=== PATIENT | female | born 1955 | race Caucasian/White ===

== ENCOUNTER 2018-12-19 07:00 | Inpatient (IN) | payer BC ==
[2018-12-13 13:34] VITALS: Ht 170.2 cm; Wt 73.5 kg
--- NOTE | 2018-12-14 07:01 | PREOPHP ---
DATE OF ADMISSION: 12/19/2018 DATE OF SURGERY: With Dr. Mal Cliffodr at [facility] on 12/19/2018. REASON FOR CONSULTATION: Consultation requested by Dr. Mal Clifford for medical evaluation and clearance of a 63-year-old woman about to undergo surgery. Thank you, Dr. Clifford, for allowing us to participate in care of this patient. HISTORY OF PRESENT ILLNESS: Willow Meneses a 63-year-old woman, issues with her back, is currently being admitted for correction of the above problem. In terms of her past medical and surgical history, she has had no medical hospitalizations. Her deliveries were vaginal. She has had the following surgical procedure: left oophorectomy, appendectomy, varicose vein stripping in her lower extremities and eyelid surgery, right and left eyelid for ptosis of eyelids. She has not broken any big bones. MEDICATIONS: She is currently taking the following medications: Levothyroxine 100 mcg a day, Amitriptyline 10 mg at bedtime and vitamins and minerals. ALLERGIES: SHE IS NOT ALLERGIC TO ANY MEDICATIONS. SOCIAL HISTORY: The patient is a , has 2 children and 5 grandchildren. She does not smoke. Alcohol socially. Does drink coffee. Has no difficulty sleeping at night and is retired. FAMILY HISTORY: Both parents are . Father in 70s of brain cancer. Mother in her 50s of breast cancer. Three brothers in good health other than cancer and some hypertension. She knows of no diabetes, heart or stroke in the family. REVIEW OF SYSTEMS: HEENT: Unremarkable. CARDIORESPIRATORY: Denies any chest pain or shortness of breath. GASTROINTESTINAL: No melena or hematemesis. Has history of diverticular disease. GENITOURINARY: No urgency, frequency. GYNECOLOGIC: Postmenopause, up to date with her head of loss prevention. MUSCULOSKELETAL: Positive for back pain. NEUROPSYCHIATRIC: Unremarkable. GENERAL HEALTH: As above. PHYSICAL EXAMINATION: VITAL SIGNS: The patient's blood pressure was 122/62, pulse was 76 and regular, respirations were 18, temperature 97.9, height 5 feet 7 inches, weight 160 pounds. GENERAL: The patient was noted to be a well-developed, well-nourished female, alert and cooperative, in no apparent acute distress, oriented to time, place, and person. HEAD, EARS, EYES, NOSE AND THROAT: Head was atraumatic. Eyes: Pupils were equal, reacted to light and accommodation. Fundi were benign. Tympanic membranes were unremarkable. Nose was negative. Mouth was unremarkable. Fair oral hygiene was present. NECK: Supple without any rigidity. Trachea was midline. Thyroid was within normal limits. Neck veins were flat. Carotid pulses were equal. No bruits were heard. BACK: Unremarkable. CHEST: Symmetrical. BREASTS AND AXILLARY: Did not reveal any obvious masses. LUNGS: Clear to percussion and auscultation. HEART: PMI was 5th intercostal space at the midclavicular line. A regular sinus rhythm was noted. No significant murmurs, rubs, or gallops being elicited. ABDOMEN: Soft, good bowel sounds were noted. No significant organomegaly, masses, or tenderness. Scar from prior surgery was noted. GENITALIA AND PELVIRECTAL: Up to date per head of loss prevention. EXTREMITIES: Did not reveal any clubbing, edema or cyanosis. Peripheral pulses were physiologic. SKIN: Moist and warm with eruptions. No gross lymphadenopathy was noted. NEUROLOGIC: Grossly intact. IMPRESSION 1. Lumbar disk disease and stenosis L4-L5. 2. Hypothyroidism. 3. Post-menopausal syndrome. 4. Stable health. LABORATORY DATA: Review of laboratory and other data revealed the following: The patient's chemistry panel including electrolytes, glucose, BUN, creatinine, calcium and uric acid, protein is magnesium and iron were normal. CBC, UA, PT and PTT were normal as well. The patient's EKG revealed a left bundle branch block which has been there before on prior EKGs. Regular sinus rhythm, no other abnormalities being noted and chest x-ray did not reveal any acute infiltrates, nor with creatinine and acute cardiopulmonary changes noted. DISCUSSION: Dr. Clifford, I see no contraindication to this patient undergoing current proposed surgery under desired form of anesthesia and feel she is a suitable candidate at this particular point in time and we will be more than happy to follow her along with you during her stay at [facility]. Thank you again, Dr. Clifford, for allowing us to participate in care of this patient. Dictated By: YANNI MCKEE/ROSINA Conf#: [id number] DID#: [id number] CLIFF
[~2018-12-19] VITALS: Ht 170.2 cm; Wt 73.5 kg
[~2018-12-19 07:00] MED LIST: AMIT10TA6 PO; CEFAZOLIN 2 GM/50 ML (PMX) 50 ML IVPB SCH; LACTATED RINGER'S 1,000 ML IV SCH; LEVO100T8 PO; METO10TA3 PO
[2018-12-31] VITALS (23 sets, daily range): BP systolic 96–125; BP diastolic 49–71; PULSE 64–82; RESP 12–28
[2018-12-31] MEDS: LACTATED RINGER'S 1,000 ML IV SCH (06:14)
[2018-12-31] MEDS ORDERED: CEFAZOLIN 2 GM/50 ML (PMX) 50 ML IVPB ONE (06:30)
--- NOTE | 2018-12-31 06:44 | PREAC ---
Date/Time of Note Date/Time of Note DATE: 12/31/18 TIME: 06:44 Anesthesia Eval and Record Evaluation Time Pre-Procedure Interview DATE: 12/31/18 TIME: 06:44 Age 63 Sex female NPO: 8 hrs Preoperative diagnosis Lumbar ddd Planned procedure L4-5 laminectomy Past Medical History Past Medical History: Includes Cardio: Arrythmia (LBBB) Endo: Hypothyroid Surgery & Anesthesia Issues No known issue Meds Anticoagulation: No Beta Greg within 24 hr: No Reason Beta Greg not given: Pt. not on B-Greg Reported Medications Levothyroxine Sodium* (Levothyroxine Sodium*) 100 Mcg Tablet, 100 MCG PO BEFORE BREAKFAST, #30 TAB 12/13/18 Amitriptyline Hcl* (Amitriptyline Hcl*) 10 Mg Tablet, 15 MG PO QHS, #30 TAB 12/13/18 Current Medications Cefazolin Sodium/ Dextrose 50 ml @ 100 mls/hr PRE-OP ONCE IVPB ; Start 12/31/18 at 06:30; Stop 12/31/18 at 06:59 Lactated Ringer's 1,000 ml @ 20 mls/hr Q24H IV Last administered on 12/31/18at 06:14; Admin Dose 20 MLS/HR; Start 12/31/18 at 06:30 Meds reviewed: Yes Allergies Coded Allergies: No Known Allergy (Unverified , 12/31/18) Allergies Reviewed: Yes Labs/Studies Labs Reviewed: Reviewed by anesthesiologist Result Diagram: 12/27/18 1435 12/27/18 1435 Blood Bank Test 12/31/18 05:55 Blood Product Summary Counts test: Negative Studies: ECG Pre-procedure Exam Last vitals Vital Signs Date Temp Pulse Resp B/P (MAP) Pulse Ox O2 O2 Flow FiO2 Time Delivery Rate 12/31/18 97.8 64 18 122/71 96 Room Air 06:32 (88) Airway: Adequate mouth opening, Adequate thyromental dist Mallampati: Mallampati II Teeth: Normal Lung: Normal Heart: Normal ASA Physical Status ASA physical status: 2 Emergency: None Planned Anesthetic General/MAC: ETT Pre-operative Attestations Prior to commencing anesthesia and surgery, the patient was re-evaluated, there was verification of: *The patient's identity *The results of appropriate recent lab work and preoperative vital signs *The above evaluation not changing prior to induction *Anesthetic plan, risk benefits, alternative and complications discussed with patient/family; questions answered; patient/family understands, accepts and wishes to proceed. SERA LOGAN Dec 31, 2018 06:44
--- NOTE | 2018-12-31 06:53 | HPN ---
Date/Time of Note Date/Time of Note DATE: 12/31/18 TIME: 06:53 Interval H&P Admission Note Pt. seen H&P reviewed: No system changes ALIYA BEACH MD Dec 31, 2018 06:53
[2018-12-31] MEDS ORDERED: BUPIVACAINE 0.25% (MPF) 30 ML INJ ONE (07:00)
[2018-12-31] MEDS ORDERED: POLYMYXIN/BACITRACIN 1L IRRIG ONE (07:00)
[2018-12-31] MEDS ORDERED: GELATIN SIZE 100 SPONGE ONE (07:00)
[2018-12-31] MEDS ORDERED: THROMBIN 5000 UNIT (RECOTHROM) VIAL ONE (07:00)
[2018-12-31] MEDS ORDERED: SUCCINYLCHOLINE CHLORIDE 100 MG/5 ML SYG IV ONE (07:01)
[2018-12-31] MEDS ORDERED: PROPOFOL 20 ML ONE (07:01)
[2018-12-31] MEDS ORDERED: LIDOCAINE 100 MG SYRINGE ONE (07:01)
[2018-12-31] MEDS ORDERED: EPHEDrine 25 MG/5 ML SYG ONE (07:01)
[2018-12-31] MEDS ORDERED: FENTAnyl 50 MCG/ML VIAL ONE (07:01)
[2018-12-31] MEDS ORDERED: ROCURONIUM 50 MG INJ ONE (07:01)
[2018-12-31] MEDS ORDERED: SUGAMMADEX SODIUM 200 MG/2 ML VIAL IV ONE (09:08)
--- NOTE | 2018-12-31 09:49 | SIPON ---
Date/Time of Note Date/Time of Note DATE: 12/31/18 TIME: 09:48 Operative Report Preoperative Diagnosis Lumbar spinal stenosis at L4 and L5 Postoperative Diagnosis Same Operation/Procedure Performed Central decompressive laminectomy at L4 Central decompressive laminectomy at L5 Medial facetectomy and foraminotomy L4-5 and L5-S1 bilaterally Cosmetic wound closure (6 cm) Lateral localizing lumbar radiographs (2) Intraoperative nerve monitoring (3 hours) Surgeon see signature line entry level administrative assistant GENIE WeaverA Anesthesia: general Estimated blood loss: 10 - 50 ml's Transfusion Required none Specimen Spinous process of L4 and L5 Grafts/Implants none Complications none ALIYA BEACH MD Dec 31, 2018 09:49
[2018-12-31] MEDS: ONDANSETRON 4 MG INJ IV PRN ×2 (09:56→10:54)
[2018-12-31] MEDS ORDERED: NACL 0.9% 3 ML SYG IV SCH (10:00)
[2018-12-31] MEDS ORDERED: KETOROLAC 30 MG INJ IV PRN (10:00)
[2018-12-31] MEDS ORDERED: TRIMETHOBENZAMIDE 100 MG/ML VIAL IM PRN (10:00)
[2018-12-31] MEDS ORDERED: ONDANSETRON 4 MG INJ IV PRN (10:00)
[2018-12-31] MEDS ORDERED: HYDROmorphONE 0.2 MG/ML PCA IV SCH (10:00)
[2018-12-31] MEDS ORDERED: MEPERIDINE 25 MG INJ IV PRN (10:00)
[2018-12-31] MEDS ORDERED: FENTAnyl 50 MCG/ML VIAL IV PRN ×3 (10:00)
[2018-12-31] MEDS ORDERED: PROCHLORPERAZINE 10 MG TAB PO PRN (10:00)
[2018-12-31] MEDS ORDERED: BETHANECHOL 25 MG TAB PO PRN (10:00)
[2018-12-31] MEDS ORDERED: AL HYDROX/MG HYDROX/SIMETH 30 ML CUP PO PRN (10:00)
[2018-12-31] MEDS ORDERED: HYDROmorphONE 1 MG/5 ML IV SYRINGE IV PRN ×3 (10:00)
[2018-12-31] MEDS ORDERED: HYDROCODONE/APAP (5/325) TAB PO PRN (10:00)
[2018-12-31] MEDS ORDERED: NALOXONE (0.4 MG/ML) INJ IV PRN (10:00)
[2018-12-31] MEDS ORDERED: CEPASTAT LOZENGE MT PRN (10:00)
[2018-12-31] MEDS ORDERED: DIAZEPAM 5 MG/ML SYG IM PRN (10:00)
[2018-12-31] MEDS ORDERED: DIPHENHYDRAMINE 50 MG CAP PO PRN (10:00)
[2018-12-31] MEDS ORDERED: ACETAMINOPHEN 325 MG TAB PO PRN (10:00)
[2018-12-31] MEDS ORDERED: OXYCODONE/ACETAMINOPHEN (5/325) TAB PO PRN ×2 (10:00)
[2018-12-31] MEDS ORDERED: ZOLPIDEM 5 MG TAB PO PRN (10:00)
--- NOTE | 2018-12-31 10:18 | OPR ---
DATE OF OPERATION: 12/31/2018 PREOPERATIVE #[id number]: Lumbar spinal stenosis at L4 and L5. POSTOPERATIVE DIAGNOSIS: Lumbar spinal stenosis at L4 and L5. OPERATIONS PERFORMED: 1. Central decompressive laminectomy at L4. 2. Central decompressive laminectomy at L5. 3. Medial facetectomy and foraminotomy, L4-L5 and L5-S1 bilaterally. 4. Cosmetic wound closure (6 cm). 5. Lateral localized lumbar radiographs (2). 6. Intraoperative nerve monitoring (3 hours). SURGEON: Mal Clifford MD OPERATION SUPERVISOR: SILVIO Weaver ANESTHESIA: Endotracheal. ANESTHESIOLOGIST: Jovani Selby MD ESTIMATED BLOOD LOSS: 50 mL, none replaced. DRAINS: Two medium Hemovac drains employed. COMPLICATIONS: None. PERTINENT HISTORY AND PHYSICAL: This is a 63-year-old female with persistent severe back and bilater al leg pain, left greater than right, which has been unrelieved by conservative management. She has undergone a number of diagnostic studies including an MRI of the lumbar spine which demonstrated lumb ar spinal stenosis at L4 (severe) and L5 (lateral recess). Treatment options discussed with the william ent, and she elected to proceed with surgery. OPERATIVE FINDINGS AT SURGERY: Severe stenosis at L4-L5 centrally and lateral recess stenosis at L5- S1 was confirmed. The baseline intraoperative nerve monitoring revealed a decrease in the left L4 po tential of 40%, the right L4 potential of 20%, the left L5 potential of 40%. These all returned to n ormal at the completion of surgery. OPERATIVE PROCEDURE: With the patient in supine position after satisfactory induction of general end otracheal anesthesia by Dr. Selby, the patient was turned to the prone kneeling position over the [place] frame. All pressure points carefully padded. Back was prepped and draped in usual sterile fashion. Athrombic pumps were applied to the legs below the knees to prevent venostasis during and after procedure. An indwelling Macdonald catheter was also placed preoperative to facilitate bladder artur inage during and after procedure. Two spinal needles placed next to what was felt to be the L4 and L 5 spinous processes, lateral angiogram was taken to confirm anatomic localization. A 6 cm incision t hen carried midline over the spinous process of L4 and L5 through skin and subcutaneous tissue to suzie p fascia after skin was infiltrated with 0.25% Marcaine without epinephrine for postoperative analges ia. Superficial retractors were placed and hemostasis secured with electrocautery. Throughout the p rocedure, copious amounts of antibacterial irrigating solution used to periodically irrigate the woun d. The fascia was incised in midline with a hot knife and a bilateral subperiosteal dissection leon ed out at L4 and L5. Deep retractors were placed and deep hemostasis secured with electrocautery. A central decompressive laminectomy at L4 and L5 was then carried out using a Dimas right-angle bone rongeur, Leksell rongeur, Kerrison punches and curettes. Ligamentum flavum was excised with sharp d issection at both levels. The operating microscope then moved into place. A medial facetectomy and foraminotomy was accomplished at L4-L5 and L5-S1 bilaterally using small hand osteotome, mallet, Baires larissa punches and curettes. The epidural hemostasis was secured with bipolar electrocautery on a low setting. Anesthesiologist then asked to perform a Valsalva maneuver at 40 mmHg and no spinal fluid l eak was noted. The wound was then closed in layers over 2 medium Hemovac drains using #1 Stratafix s utures in deep paralumbar musculature and deep fascia of back, 2-0 Stratafix sutures in subcu tissue, and a 4-0 Vicryl subcuticular cosmetic closing suture on the skin. Dermabond and sterile compressiv e dressings were applied. The patient having tolerated procedure well and was then turned to the sup ine position onto her bed and extubated by Dr. Selby. She was transported to the recovery room i n satisfactory condition. At the conclusion of procedure, sponge, instrument, and needle counts were all correct. NEED FOR FIELD DIRECTOR: During this spinal surgical procedure, my legal document assistant was used to retract and protect the spinal nerves and dural sac. My legal document assistant also employed the suction catheters to maurice jessica blood from the surgical field to improve visualization of the neural structures. The legal document assistant was medically necessary to facilitate the completion of the surgery in a safe and expeditious manner. State of [place] regulations, as well as hospital bylaws, preclude the use of non-licensed health care personnel such as operating room technicians, to perform these functions. Throughout the procedure, neural monitoring was carried out by Drive YOYO including EMG, SSEP a nd MEP monitoring of the L3, L4, L5 and S1 nerve roots bilaterally. These are interpreted in real ti me by Dr. Maxi Pinedo. Dictated By: MAL CLIFFORD MD TM/NTS Conf#: [id number] DID#: [id number] CC: SHELL CATES MD;*EndCC*
[2018-12-31] MEDS ORDERED: CEFAZOLIN 1 GM/50 ML (PMX) 50 ML IVPB SCH (12:00)
[2018-12-31] MEDS: DEXTROSE 5%-0.45% NACL 1,000 ML IV SCH ×2 (12:20→19:36)
--- NOTE | 2018-12-31 13:57 | CONS ---
Assessment/Plan Assessment/Plan Problems: (1) Nausea with vomiting Status: Acute Comment: Likely a response to narcotics. Will add metoclopramide as primary option for nausea instead of ondansetron. Monitor to see if symptoms improve. (2) Hypothyroidism Status: Chronic Comment: Cont. LT4 100 mcg/d (3) Insomnia Status: Chronic Comment: Cont. amitriptyline 15 mg qhs (4) Lumbar spinal stenosis Status: Resolved Comment: Per primary team (5) Status post lumbar laminectomy Status: Acute Comment: Doing fair POD#0. Pt. will need to improve from her N/V in order to perform PT. PT and pain control per primary team. Will monitor and manage any other medical problems should they arise. Consultation Date/Type/Reason Admit Date/Time Dec 31, 2018 at 05:16 Date of Consultation: Dec 31, 2018 Type of Consult Medicine Reason for Consultation Medical management Requesting Provider: ALIYA BEACH Date/Time of Note DATE: 12/31/18 TIME: 13:50 Hx of Present Illness 63 y/o C F w/ h/o hypothyroidism in [facility] until about 3-4 y. ago when she began to experience low back pain. Progressively worsened. For the last year has been nearly unbearable. Had two epidurals but these have been ineffective. Now s/p scheduled decompressive lumbar lami for spinal stenosis. Pt. is POD#0 and having sig. N/V. Constitutional: no complaints Eyes: no complaints ENT: no complaints Respiratory: no complaints Cardiovascular: no complaints Gastrointestinal: nausea, vomiting Genitourinary: no complaints Musculoskeletal: no complaints Neurologic: no complaints Past Medical History Medical History: hypothyroid Home Meds Reported Medications Levothyroxine Sodium* (Levothyroxine Sodium*) 100 Mcg Tablet, 100 MCG PO BEFORE BREAKFAST, #30 TAB 12/13/18 Amitriptyline Hcl* (Amitriptyline Hcl*) 10 Mg Tablet, 15 MG PO QHS, #30 TAB 12/13/18 Medications Current Medications Lactated Ringer's 1,000 ml @ 20 mls/hr Q24H IV Last administered on 12/31/18at 06:14; Admin Dose 20 MLS/HR; Start 12/31/18 at 06:30 Hydromorphone HCl (Dilaudid) 0.2 mg PACU PRN IV MILD PAIN 1-3 Last administered on 12/31/18at 10:53; Admin Dose 0.2 MG; Start 12/31/18 at 10:00; Stop 12/31/18 at 14:30 Hydromorphone HCl (Dilaudid) 0.4 mg PACU PRN IV MOD PAIN 4-6 Last administered on 12/31/18at 10:52; Admin Dose 0.4 MG; Start 12/31/18 at 10:00; Stop 12/31/18 at 14:30 Hydromorphone HCl (Dilaudid) 0.6 mg PACU PRN IV SEVERE PAIN 7-10; Start 12/31/18 at 10:00; Stop 12/31/18 at 14:30 Fentanyl (Sublimaze) 25 mcg PACU ORDER PRN IV MILD PAIN 1-3; Start 12/31/18 at 10:00; Stop 12/31/18 at 14:30 Fentanyl (Sublimaze) 50 mcg PACU ORDER PRN IV MOD PAIN 4-6; Start 12/31/18 at 10:00; Stop 12/31/18 at 14:30 Fentanyl (Sublimaze) 75 mcg PACU ORDER PRN IV SEVERE PAIN 7-10; Start 12/31/18 at 10:00; Stop 12/31/18 at 14:30 Ketorolac Tromethamine (Toradol) 30 mg PACU ORDER PRN IV FOR PAIN AFTER IV NARCOTIC MED; Start 12/31/18 at 10:00; Stop 12/31/18 at 14:30 Oxycodone/ Acetaminophen (Percocet (5/ 325)) 1 tab PACU ORDER PRN PO .PAIN 1-5; Start 12/31/18 at 10:00; Stop 12/31/18 at 14:30 Oxycodone/ Acetaminophen (Percocet (5/ 325)) 2 tab PACU ORDER PRN PO .PAIN 6-10; Start 12/31/18 at 10:00; Stop 12/31/18 at 14:30 Ondansetron HCl (Zofran Inj) 4 mg PACU ORDER PRN IV NAUSEA/VOMITING Last administered on 12/31/18at 10:54; Admin Dose 4 MG; Start 12/31/18 at 10:00; Stop 12/31/18 at 14:30 Meperidine HCl (Demerol) 25 mg PACU ORDER PRN IV .RIGORS; Start 12/31/18 at 10:00; Stop 12/31/18 at 14:30 Dextrose/Sodium Chloride 1,000 ml @ 100 mls/hr Q10H IV Last administered on 12/31/18at 12:20; Admin Dose 100 MLS/HR; Start 12/31/18 at 09:36 Acetaminophen/ Hydrocodone Bitart ([place] (5/325)) 1 tab Q4H PRN PO .PAIN 1-5; Start 12/31/18 at 10:00 Acetaminophen/ Hydrocodone Bitart ([place] (5/325)) 2 tab Q4H PRN PO .PAIN 6-10; Start 12/31/18 at 10:00 Zolpidem Tartrate (Ambien) 5 mg HS PRN PO .INSOMNIA; Start 12/31/18 at 10:00 Prochlorperazine (Compazine) 10 mg Q4H PRN PO NAUSEA/VOMITING; Start 12/31/18 at 10:00 Trimethobenzamide HCl (Tigan) 200 mg Q4H PRN IM NAUSEA/VOMITING; Start 12/31/18 at 10:00 Ondansetron HCl (Zofran Inj) 4 mg Q6H PRN IV NAUSEA/VOMITING; Start 12/31/18 at 10:00 Al Hydrox/Mg Hydrox/Simethicone (Mag-Al Plus) 15 ml Q4H PRN PO .CONSTIPATION; Start 12/31/18 at 10:00 Docusate Sodium (Colace) 100 mg BID PO ; Start 01/01/19 at 09:00 Acetaminophen (Tylenol Tab) 650 mg Q4H PRN PO TEMP GREATER THAN 101F OR [place]; Start 12/31/18 at 10:00 Ascorbic Acid (Vitamin C) 1,000 mg BID PO ; Start 01/01/19 at 09:00 Ferrous Sulfate (Ferrous Sulfate (Ec)) 325 mg TID PO ; Start 01/01/19 at 09:00 Ranitidine HCl (Zantac) 150 mg BID PO ; Start 12/31/18 at 21:00 Diazepam (Valium) 5 mg Q4H PRN PO .MUSCLE SPASM; Start 12/31/18 at 10:00 Diazepam (Valium) 5 mg Q4H PRN IM .MUSCLE SPASM; Start 12/31/18 at 10:00 Phenol (Cepastat Lozenge) 1 lozenge PRN PRN MT .SORE THROAT; Start 12/31/18 at 10:00 Bethanechol Chloride (Urecholine) 25 mg PRN PRN PO .UNABLE TO VOID; Start 12/31/18 at 10:00 Diphenhydramine HCl (Benadryl) 50 mg Q6H PRN PO .PRURITUS; Start 12/31/18 at 10:00 IV Flush (NS 3 ml) 3 ml PER PROTOCOL IV ; Start 12/31/18 at 10:00 Hydromorphone HCl (Dilaudid GOLF CADDIE) Q4PCA IV Last administered on 12/31/18at 10:32; Admin Dose 6 MG; Start 12/31/18 at 10:00 Naloxone HCl (Narcan) 0.2 mg Q2M PRN IV RR 8 BREATHS/MIN OR LESS; Start 12/31/18 at 10:00 Amitriptyline HCl (Elavil) 15 mg QHS PO ; Start 12/31/18 at 21:00 Levothyroxine Sodium (Synthroid) 100 mcg BEFORE BREAKFAST PO ; Start 01/01/19 at 07:00 Allergies: Coded Allergies: No Known Allergy (Unverified , 12/31/18) Past Surgical History Past Surgical Hx: other (B oophorectomy, eye surgery, varicose vein stripping) Family History Significant Family History: cancer (brain in father, breast in mother) Social History b. Yudy, hs grad, ret'd school superintendent, , 2 children Alcohol Use: occasionally Smoking Status: Former smoker (quit many years ago, smoked about 10 y. ) Drug Use: none Exam/Review of Systems Exam Vitals VS - Last 72 Hours, by Label Date Temp Pulse Resp B/P (MAP) Pulse Ox O2 O2 Flow FiO2 Time Delivery Rate 12/31/18 70 15 112/54 100 Nasal 3.0 10:42 (73) Cannula 12/31/18 70 15 112/54 100 10:42 (73) 12/31/18 72 12 101/59 100 Nasal 3.0 10:37 (73) Cannula 12/31/18 72 12 101/59 100 10:37 (73) 12/31/18 74 12 104/55 100 Nasal 3.0 10:32 (71) Cannula 12/31/18 74 12 104/55 100 10:32 (71) 12/31/18 72 12 108/49 100 10:27 (68) 12/31/18 72 12 108/49 100 Nasal 3.0 10:27 (68) Cannula 12/31/18 72 13 96/58 (71) 100 Nasal 3.0 10:22 Cannula 12/31/18 72 13 96/58 (71) 100 10:22 12/31/18 74 14 102/55 100 Nasal 3.0 10:17 (71) Cannula 12/31/18 74 14 102/55 100 10:17 (71) 12/31/18 72 12 108/57 100 10:12 (74) 12/31/18 72 12 108/57 100 Nasal 3.0 10:12 (74) Cannula 12/31/18 74 14 108/60 100 10:07 (76) 12/31/18 74 14 108/60 100 Nasal 3.0 10:07 (76) Cannula 12/31/18 72 17 105/57 100 Mask 8.0 10:02 (73) 12/31/18 72 24 115/56 100 Mask 8.0 09:57 (75) 12/31/18 82 28 112/60 100 Mask 8.0 09:52 (77) 12/31/18 82 22 100 09:50 12/31/18 97.7 75 16 115/56 100 Mask 8.0 09:50 (75) 12/31/18 98.2 09:42 12/31/18 97.8 64 18 122/71 96 Room Air 06:32 (88) Vital Signs Date Temp Pulse Resp B/P (MAP) Pulse Ox O2 O2 Flow FiO2 Time Delivery Rate 12/31/18 70 15 112/54 100 Nasal 3.0 10:42 (73) Cannula 12/31/18 97.7 09:50 Constitutional: well developed; No alert (sleeping) Psych: no complaints, nl mood/affect Eyes: nl conjunctiva, EOMI, nl lids, nl sclera, PERRL ENMT: nl external ears & nose, mucosa pink and moist Neck: supple, non-tender; No bruits, No masses, No thyromegaly Respiratory: clear to auscultation, normal air movement Cardiovascular: regular rate and rhythm, nl pulses; No edema, No murmurs/extra sounds, No rub Gastrointestinal: soft, nl liver, spleen, non-tender, bowel sounds; No mass, No rebound or guarding Musculoskeletal: nl extremities to inspection Extremities: normal pulses; No cyanosis, No clubbing, No edema Neurological: lethargic (sleeping) Results Result Diagram: 12/27/18 1435 12/27/18 1435 Medications Medication Current Medications Lactated Ringer's 1,000 ml @ 20 mls/hr Q24H IV Last administered on 12/31/18at 06:14; Admin Dose 20 MLS/HR; Start 12/31/18 at 06:30 Hydromorphone HCl (Dilaudid) 0.2 mg PACU PRN IV MILD PAIN 1-3 Last administered on 12/31/18at 10:53; Admin Dose 0.2 MG; Start 12/31/18 at 10:00; Stop 12/31/18 at 14:30 Hydromorphone HCl (Dilaudid) 0.4 mg PACU PRN IV MOD PAIN 4-6 Last administered on 12/31/18at 10:52; Admin Dose 0.4 MG; Start 12/31/18 at 10:00; Stop 12/31/18 at 14:30 Hydromorphone HCl (Dilaudid) 0.6 mg PACU PRN IV SEVERE PAIN 7-10; Start 12/31/18 at 10:00; Stop 12/31/18 at 14:30 Fentanyl (Sublimaze) 25 mcg PACU ORDER PRN IV MILD PAIN 1-3; Start 12/31/18 at 10:00; Stop 12/31/18 at 14:30 Fentanyl (Sublimaze) 50 mcg PACU ORDER PRN IV MOD PAIN 4-6; Start 12/31/18 at 10:00; Stop 12/31/18 at 14:30 Fentanyl (Sublimaze) 75 mcg PACU ORDER PRN IV SEVERE PAIN 7-10; Start 12/31/18 at 10:00; Stop 12/31/18 at 14:30 Ketorolac Tromethamine (Toradol) 30 mg PACU ORDER PRN IV FOR PAIN AFTER IV NARCOTIC MED; Start 12/31/18 at 10:00; Stop 12/31/18 at 14:30 Oxycodone/ Acetaminophen (Percocet (5/ 325)) 1 tab PACU ORDER PRN PO .PAIN 1-5; Start 12/31/18 at 10:00; Stop 12/31/18 at 14:30 Oxycodone/ Acetaminophen (Percocet (5/ 325)) 2 tab PACU ORDER PRN PO .PAIN 6-10; Start 12/31/18 at 10:00; Stop 12/31/18 at 14:30 Ondansetron HCl (Zofran Inj) 4 mg PACU ORDER PRN IV NAUSEA/VOMITING Last administered on 12/31/18at 10:54; Admin Dose 4 MG; Start 12/31/18 at 10:00; Stop 12/31/18 at 14:30 Meperidine HCl (Demerol) 25 mg PACU ORDER PRN IV .RIGORS; Start 12/31/18 at 10:00; Stop 12/31/18 at 14:30 Dextrose/Sodium Chloride 1,000 ml @ 100 mls/hr Q10H IV Last administered on 12/31/18at 12:20; Admin Dose 100 MLS/HR; Start 12/31/18 at 09:36 Acetaminophen/ Hydrocodone Bitart ([place] (5/325)) 1 tab Q4H PRN PO .PAIN 1-5; Start 12/31/18 at 10:00 Acetaminophen/ Hydrocodone Bitart ([place] (5/325)) 2 tab Q4H PRN PO .PAIN 6-10; Start 12/31/18 at 10:00 Zolpidem Tartrate (Ambien) 5 mg HS PRN PO .INSOMNIA; Start 12/31/18 at 10:00 Prochlorperazine (Compazine) 10 mg Q4H PRN PO NAUSEA/VOMITING; Start 12/31/18 at 10:00 Trimethobenzamide HCl (Tigan) 200 mg Q4H PRN IM NAUSEA/VOMITING; Start 12/31/18 at 10:00 Ondansetron HCl (Zofran Inj) 4 mg Q6H PRN IV NAUSEA/VOMITING; Start 12/31/18 at 10:00 Al Hydrox/Mg Hydrox/Simethicone (Mag-Al Plus) 15 ml Q4H PRN PO .CONSTIPATION; Start 12/31/18 at 10:00 Docusate Sodium (Colace) 100 mg BID PO ; Start 01/01/19 at 09:00 Acetaminophen (Tylenol Tab) 650 mg Q4H PRN PO TEMP GREATER THAN 101F OR [place]; Start 12/31/18 at 10:00 Ascorbic Acid (Vitamin C) 1,000 mg BID PO ; Start 01/01/19 at 09:00 Ferrous Sulfate (Ferrous Sulfate (Ec)) 325 mg TID PO ; Start 01/01/19 at 09:00 Ranitidine HCl (Zantac) 150 mg BID PO ; Start 12/31/18 at 21:00 Diazepam (Valium) 5 mg Q4H PRN PO .MUSCLE SPASM; Start 12/31/18 at 10:00 Diazepam (Valium) 5 mg Q4H PRN IM .MUSCLE SPASM; Start 12/31/18 at 10:00 Phenol (Cepastat Lozenge) 1 lozenge PRN PRN MT .SORE THROAT; Start 12/31/18 at 10:00 Bethanechol Chloride (Urecholine) 25 mg PRN PRN PO .UNABLE TO VOID; Start 12/31/18 at 10:00 Diphenhydramine HCl (Benadryl) 50 mg Q6H PRN PO .PRURITUS; Start 12/31/18 at 10:00 IV Flush (NS 3 ml) 3 ml PER PROTOCOL IV ; Start 12/31/18 at 10:00 Hydromorphone HCl (Dilaudid GOLF CADDIE) Q4PCA IV Last administered on 12/31/18at 10:32; Admin Dose 6 MG; Start 12/31/18 at 10:00 Naloxone HCl (Narcan) 0.2 mg Q2M PRN IV RR 8 BREATHS/MIN OR LESS; Start 12/31/18 at 10:00 Amitriptyline HCl (Elavil) 15 mg QHS PO ; Start 12/31/18 at 21:00 Levothyroxine Sodium (Synthroid) 100 mcg BEFORE BREAKFAST PO ; Start 01/01/19 at 07:00 NAVJOT FERNANDEZ MD Dec 31, 2018 13:57
[2018-12-31] MEDS: METOCLOPRAMIDE 10 MG INJ IV PRN (13:58)
[2018-12-31] MEDS: DIAZEPAM 5 MG TAB PO PRN ×3 (14:45→23:01)
[2018-12-31] MEDS: AMITRIPTYLINE 10 MG TAB PO SCH (20:55)
[2018-12-31] MEDS: RANITIDINE 150 MG TAB PO SCH (20:55)
[2019-01-01] MEDS: DEXTROSE 5%-0.45% NACL 1,000 ML IV SCH ×2 (00:14→15:36)
[2019-01-01 00:18] VITALS: BP 118/59; PULSE 66; RESP 18
[2019-01-01] MEDS: DIAZEPAM 5 MG TAB PO PRN ×5 (03:36→22:09)
[2019-01-01] MEDS: LACTATED RINGER'S 1,000 ML IV SCH (05:38)
--- NOTE | 2019-01-01 06:38 | PN ---
Date/Time of Note Date/Time of Note DATE: 01/01/19 TIME: 06:37 Assessment/Plan Lines/Catheters IV Catheter Type (from Nrs): Saline Lock Macdonald in Place (from Nrs): Yes Subjective 24 Hr Interval Summary The patient is postop day #2 following a decompressive laminectomy at L4 and L5. She is resting comfortably in bed. Neurovascular structures are intact distall y. A.m. lab work is unremarkable. Macdonald catheter is in place. Her Hemovac output was 50 cc, will be left in place. She will be mobilized as tolerated by physical therapy. Exam/Review of Systems Vital Signs Vitals Vital Signs Date Temp Pulse Resp B/P (MAP) Pulse Ox O2 O2 Flow FiO2 Time Delivery Rate 01/01/19 20 05:57 01/01/19 98.2 66 118/59 100 00:18 (78) 12/31/18 Nasal 2.0 20:00 Cannula Intake and Output 12/31/18 12/31/18 01/01/19 1515:00 23:00 07:00 IntakeIntake Total 1350 ml 400 ml 1200 ml OutputOutput Total 520 ml 1880 ml 950 ml BalanceBalance 830 ml -1480 ml 250 ml Results Result Diagram: 01/01/19 0435 01/01/19 0440 ALIYA BEACH MD Jan 01, 2019 06:37
[2019-01-01] MEDS: LEVOTHYROXINE 100 MCG TAB PO SCH (06:48)
[2019-01-01 07:44] VITALS: BP 114/58; RESP 19
[2019-01-01] MEDS ORDERED: BETHANECHOL 25 MG TAB PO PRN (08:00)
[2019-01-01] MEDS: FERROUS SULFATE (EC) 325 MG TAB PO SCH ×3 (08:09→20:55)
[2019-01-01] MEDS: RANITIDINE 150 MG TAB PO SCH ×2 (08:09→20:55)
[2019-01-01] MEDS: ASCORBIC ACID 500 MG TAB PO SCH ×2 (08:09→20:55)
[2019-01-01] MEDS: DOCUSATE SODIUM 100 MG CAP PO SCH ×2 (08:09→20:55)
[2019-01-01] MEDS: METOCLOPRAMIDE 10 MG INJ IV PRN (08:50)
--- NOTE | 2019-01-01 18:21 | CONS ---
Assessment/Plan Assessment/Plan Problems: (1) Nausea with vomiting Status: Resolved Comment: Cont. metoclopramide prn. Consider changing home pain med to percocet to improve tolerability. Pt. will think about it. (2) Hypothyroidism Status: Chronic Comment: Cont. LT4 daily (3) Insomnia Status: Chronic Comment: Cont. amitriptyline (4) Lumbar spinal stenosis Status: Resolved Comment: Per primary team (5) Status post lumbar laminectomy Status: Acute Comment: Doing well POD#1. Ambulating w/ PT. Pain controlled but consider change to percocet from norco to improve tolerability. Likely d/c drain tomorrow and d/c home afterward which is acceptable to us. Defer d/c plan to primary team Consultation Date/Type/Reason Admit Date/Time Dec 31, 2018 at 05:16 Initial Consult Date 12/31/18 Type of Consult Medicine Reason for Consultation Medical Management Requesting Provider: ALIYA BEACH MD Date/Time of Note DATE: 01/01/19 TIME: 18:17 24 HR Interval Summary Constitutional: no complaints, improved Detailed Summary Respiratory: no complaints Cardiovascular: no complaints Gastrointestinal: No nausea (metoclopramide has been effective; concerned about nausea after d/c b/c hydrocodone also w/ h/o causing nausea) Genitourinary: no complaints Musculoskeletal: back pain (able to ambulate w/ PT) Neurologic: headache (mild) Exam/Review of Systems Exam Vitals VS - Last 72 Hours, by Label Date Temp Pulse Resp B/P (MAP) Pulse Ox O2 O2 Flow FiO2 Time Delivery Rate 01/01/19 18 09:00 01/01/19 Nasal 2.0 08:00 Cannula 01/01/19 98.0 19 114/58 97 07:44 (76) 01/01/19 20 05:57 01/01/19 18 01:00 01/01/19 98.2 66 18 118/59 100 00:18 (78) 12/31/18 18 20:59 12/31/18 Nasal 2.0 20:00 Cannula 12/31/18 97.6 77 18 119/59 100 19:57 (79) 12/31/18 16 17:00 12/31/18 98.3 75 18 118/63 100 Nasal 3.0 15:30 (81) Cannula 12/31/18 98.3 76 18 122/62 100 Nasal 3.0 14:30 (82) Cannula 12/31/18 98.3 74 18 120/67 100 Nasal 3.0 13:30 (84) Cannula 12/31/18 98.3 76 18 125/66 100 Nasal 3.0 13:00 (85) Cannula 12/31/18 16 13:00 12/31/18 98.3 73 16 122/65 100 Nasal 3.0 12:30 (84) Cannula 12/31/18 98.3 74 16 119/63 100 Nasal 3.0 12:15 (81) Cannula 12/31/18 Nasal 2.0 12:00 Cannula 12/31/18 98.3 75 16 120/62 100 Nasal 3.0 12:00 (81) Cannula 12/31/18 98.3 74 16 118/60 100 Nasal 3.0 11:45 (79) Cannula 12/31/18 98.3 76 16 116/59 100 Nasal 3.0 11:30 (78) Cannula 12/31/18 70 15 112/54 100 Nasal 3.0 10:42 (73) Cannula 12/31/18 70 15 112/54 100 10:42 (73) 12/31/18 72 12 101/59 100 Nasal 3.0 10:37 (73) Cannula 12/31/18 72 12 101/59 100 10:37 (73) 12/31/18 74 12 104/55 100 Nasal 3.0 10:32 (71) Cannula 12/31/18 74 12 104/55 100 10:32 (71) 12/31/18 72 12 108/49 100 10:27 (68) 12/31/18 72 12 108/49 100 Nasal 3.0 10:27 (68) Cannula 12/31/18 72 13 96/58 (71) 100 Nasal 3.0 10:22 Cannula 12/31/18 72 13 96/58 (71) 100 10:22 12/31/18 74 14 102/55 100 Nasal 3.0 10:17 (71) Cannula 12/31/18 74 14 102/55 100 10:17 (71) 12/31/18 72 12 108/57 100 10:12 (74) 12/31/18 72 12 108/57 100 Nasal 3.0 10:12 (74) Cannula 12/31/18 74 14 108/60 100 10:07 (76) 12/31/18 74 14 108/60 100 Nasal 3.0 10:07 (76) Cannula 12/31/18 72 17 105/57 100 Mask 8.0 10:02 (73) 12/31/18 72 24 115/56 100 Mask 8.0 09:57 (75) 12/31/18 82 28 112/60 100 Mask 8.0 09:52 (77) 12/31/18 82 22 100 09:50 12/31/18 97.7 75 16 115/56 100 Mask 8.0 09:50 (75) 12/31/18 98.2 09:42 12/31/18 97.8 64 18 122/71 96 Room Air 06:32 (88) Vital Signs Date Temp Pulse Resp B/P (MAP) Pulse Ox O2 O2 Flow FiO2 Time Delivery Rate 01/01/19 18 09:00 01/01/19 Nasal 2.0 08:00 Cannula 01/01/19 98.0 114/58 97 07:44 (76) 01/01/19 66 00:18 Intake and Output 12/31/18 12/31/18 01/01/19 1515:00 23:00 07:00 IntakeIntake Total 1350 ml 400 ml 1200 ml OutputOutput Total 520 ml 1880 ml 950 ml BalanceBalance 830 ml -1480 ml 250 ml Constitutional: alert, oriented, well developed Psych: no complaints, nl mood/affect Respiratory: clear to auscultation, normal air movement Cardiovascular: regular rate and rhythm, nl pulses; No edema, No murmurs/extra sounds, No rub Gastrointestinal: soft, nl liver, spleen, non-tender, bowel sounds; No mass, No rebound or guarding Musculoskeletal: nl extremities to inspection Extremities: normal pulses; No cyanosis, No clubbing, No edema Neurological: PIT SLAGMAN II-XII intact, nl mental status, nl speech, nl strength Results Result Diagram: 01/01/19 0435 01/01/19 0440 Results 24hrs Laboratory Tests Test 01/01/19 04:35 01/01/19 04:40 01/01/19 08:50 01/01/19 09:00 Hemoglobin 11.7 L Hematocrit 34.5 L Sodium Level 139 Potassium Level 4.1 Chloride Level 104 Carbon Dioxide Level 32 H Anion Gap 3 L Blood Urea Nitrogen 6 L Creatinine 0.68 Est Glomerular > 60 Filtrat Rate mL/min Glucose Level 118 Calcium Level 8.5 Lab Scanned Report REFERENCE LAB Urine Color YELLOW Urine Clarity CLEAR Urine pH 5.0 Urine Specific 1.011 Watson Urine Ketones NEGATIVE Urine Nitrite NEGATIVE Urine Bilirubin NEGATIVE Urine Urobilinogen NEGATIVE Urine Leukocyte NEGATIVE Esterase Urine Hemoglobin NEGATIVE Urine Glucose NEGATIVE Urine Total Protein NEGATIVE Medications Medication Current Medications Lactated Ringer's 1,000 ml @ 20 mls/hr Q24H IV Last administered on 12/31/18at 06:14; Admin Dose 20 MLS/HR; Start 12/31/18 at 06:30 Dextrose/Sodium Chloride 1,000 ml @ 100 mls/hr Q10H IV Last administered on 01/01/19at 00:14; Admin Dose 100 MLS/HR; Start 12/31/18 at 09:36 Acetaminophen/ Hydrocodone Bitart ([place] (5/325)) 1 tab Q4H PRN PO .PAIN 1-5; Start 12/31/18 at 10:00 Acetaminophen/ Hydrocodone Bitart ([place] (5/325)) 2 tab Q4H PRN PO .PAIN 6-10; Start 12/31/18 at 10:00 Zolpidem Tartrate (Ambien) 5 mg HS PRN PO .INSOMNIA; Start 12/31/18 at 10:00 Prochlorperazine (Compazine) 10 mg Q4H PRN PO NAUSEA/VOMITING; Start 12/31/18 at 10:00 Trimethobenzamide HCl (Tigan) 200 mg Q4H PRN IM NAUSEA/VOMITING; Start 12/31/18 at 10:00 Ondansetron HCl (Zofran Inj) 4 mg Q6H PRN IV NAUSEA/VOMITING Last administered on 12/31/18at 14:39; Admin Dose 4 MG; Start 12/31/18 at 10:00 Al Hydrox/Mg Hydrox/Simethicone (Mag-Al Plus) 15 ml Q4H PRN PO .CONSTIPATION; Start 12/31/18 at 10:00 Docusate Sodium (Colace) 100 mg BID PO Last administered on 01/01/19at 08:09; Admin Dose 100 MG; Start 01/01/19 at 09:00 Acetaminophen (Tylenol Tab) 650 mg Q4H PRN PO TEMP GREATER THAN 101F OR [place]; Start 12/31/18 at 10:00 Ascorbic Acid (Vitamin C) 1,000 mg BID PO Last administered on 01/01/19 08:09; Admin Dose 1,000 MG; Start 01/01/19 at 09:00 Ferrous Sulfate (Ferrous Sulfate (Ec)) 325 mg TID PO Last administered on 01/01/19 13:55; Admin Dose 325 MG; Start 01/01/19 at 09:00 Ranitidine HCl (Zantac) 150 mg BID PO Last administered on 01/01/19 08:09; Admin Dose 150 MG; Start 12/31/18 at 21:00 Diazepam (Valium) 5 mg Q4H PRN PO .MUSCLE SPASM Last administered on 01/01/19 1 8:08; Admin Dose 5 MG; Start 12/31/18 at 10:00 Diazepam (Valium) 5 mg Q4H PRN IM .MUSCLE SPASM; Start 12/31/18 at 10:00 Phenol (Cepastat Lozenge) 1 lozenge PRN PRN MT .SORE THROAT Last administered on 12/31/18 18:47; Admin Dose 1 LOZENGE; Start 12/31/18 at 10:00 Diphenhydramine HCl (Benadryl) 50 mg Q6H PRN PO .PRURITUS; Start 12/31/18 at 10:00 IV Flush (NS 3 ml) 3 ml PER PROTOCOL IV ; Start 12/31/18 at 10:00 Hydromorphone HCl (Dilaudid [employer]IDENT) Q4PCA IV Last administered on 12/31/18 10:32; Admin Dose 6 MG; Start 12/31/18 at 10:00 Naloxone HCl (Narcan) 0.2 mg Q2M PRN IV RR 8 BREATHS/MIN OR LESS; Start 12/31/18 at 10:00 Amitriptyline HCl (Elavil) 15 mg QHS PO Last administered on 12/31/18 20:55; A dmin Dose 15 MG; Start 12/31/18 at 21:00 Levothyroxine Sodium (Synthroid) 100 mcg BEFORE BREAKFAST PO Last administered on 01/01/19 06:48; Admin Dose 100 MCG; Start 01/01/19 at 07:00 Metoclopramide HCl (Reglan) 10 mg Q6H PRN IV NAUSEA Last administered on 8/6/19at 08:50; Admin Dose 10 MG; Start 12/31/18 at 14:00 Bethanechol Chloride (Urecholine) 25 mg PRN PRN PO UNABLE TO VOID Last administered on 01/01/19 08:51; Admin Dose 25 MG; Start 01/01/19 at 08:00 NAVJOT FERNANDEZ MD Jan 01, 2019 18:21
[2019-01-01 20:10] VITALS: BP 124/56; PULSE 94; RESP 17
[2019-01-01] MEDS: AMITRIPTYLINE 10 MG TAB PO SCH (20:55)
[2019-01-01] MEDS: HYDROCODONE/APAP (5/325) TAB PO PRN (21:01)
[2019-01-02] MEDS: DEXTROSE 5%-0.45% NACL 1,000 ML IV SCH (01:10)
[2019-01-02] MEDS: LACTATED RINGER'S 1,000 ML IV SCH (05:57)
[2019-01-02] MEDS: LEVOTHYROXINE 100 MCG TAB PO SCH (06:32)
[2019-01-02 07:18] VITALS: BP 135/65; PULSE 81; RESP 14
[2019-01-02] MEDS: DIAZEPAM 5 MG TAB PO PRN (07:20)
--- NOTE | 2019-01-02 08:43 | PN ---
Date/Time of Note Date/Time of Note DATE: 01/02/19 TIME: 08:42 Assessment/Plan Lines/Catheters IV Catheter Type (from Nrsg): Saline Lock Macdonald in Place (from Nrsg): Yes Subjective 24 Hr Interval Summary The patient is postop day #2 following a decompressive laminectomy at L4 and L5. She is resting comfortably in bed. Neurovascular structures are intact distall y. Hemovac drainage was minimal, and was discontinued. Her incision is clean and dry and was redressed. I anticipate she will be cleared for discharge later today by physical therapy. She has been given strict discharge precautions and instructions as well as follow-up arrangements. Exam/Review of Systems Vital Signs Vitals Vital Signs Date Temp Pulse Resp B/P (MAP) Pulse Ox O2 O2 Flow FiO2 Time Delivery Rate 01/02/19 98.7 81 14 135/65 100 Room Air 07:18 (88) 01/01/19 2.0 08:00 Intake and Output 01/01/19 01/01/19 01/02/19 1515:00 23:00 07:00 IntakeIntake Total 400 ml 680 ml OutputOutput Total 640 ml 10 ml BalanceBalance -240 ml 680 ml -10 ml Results Result Diagram: 01/01/19 0435 01/01/19 0440 ALIYA BEACH MD Jan 02, 2019 08:43
[2019-01-02] MEDS: FERROUS SULFATE (EC) 325 MG TAB PO SCH (09:44)
[2019-01-02] MEDS: ASCORBIC ACID 500 MG TAB PO SCH (09:44)
[2019-01-02] MEDS: DOCUSATE SODIUM 100 MG CAP PO SCH (09:44)
[2019-01-02] MEDS: RANITIDINE 150 MG TAB PO SCH (09:45)
[2019-01-02] MEDS: HYDROCODONE/APAP (5/325) TAB PO PRN (09:45)
--- NOTE | 2019-01-02 09:57 | CONS ---
Assessment/Plan Assessment/Plan Problems: (1) Hypothyroidism Status: Chronic Comment: Cont. LT4 daily after d/c (2) Insomnia Status: Chronic Comment: Cont. amitriptyline after d/c (3) Lumbar spinal stenosis Status: Resolved (4) Status post lumbar laminectomy Status: Acute Comment: Doing well POD#2. Ready for d/c home per primary team. We concur. Plan change pain meds from [place] to percocet for improved tolerability (5) Nausea with vomiting Status: Resolved Comment: Will give Rx for reglan on d/c just in case it is necessary Consultation Date/Type/Reason Admit Date/Time Dec 31, 2018 at 05:16 Initial Consult Date 12/31/18 Type of Consult Medicine Reason for Consultation Medical management Requesting Provider: ALIYA BEACH MD Date/Time of Note DATE: 01/02/19 TIME: 09:54 24 HR Interval Summary Constitutional: no complaints, improved (ambulating well, pain controlled) Detailed Summary Respiratory: no complaints Cardiovascular: no complaints Gastrointestinal: no complaints Genitourinary: no complaints Musculoskeletal: no complaints; No back pain Neurologic: no complaints Exam/Review of Systems Exam Vitals VS - Last 72 Hours, by Label Date Temp Pulse Resp B/P (MAP) Pulse Ox O2 O2 Flow FiO2 Time Delivery Rate 01/02/19 98.7 81 14 135/65 100 Room Air 07:18 (88) 01/01/19 99.6 94 17 124/56 93 20:10 (78) 01/01/19 18 09:00 01/01/19 Nasal 2.0 08:00 Cannula 01/01/19 98.0 19 114/58 97 07:44 (76) 01/01/19 20 05:57 01/01/19 18 01:00 01/01/19 98.2 66 18 118/59 100 00:18 (78) 12/31/18 18 20:59 12/31/18 Nasal 2.0 20:00 Cannula 12/31/18 97.6 77 18 119/59 100 19:57 (79) 12/31/18 16 17:00 12/31/18 98.3 75 18 118/63 100 Nasal 3.0 15:30 (81) Cannula 12/31/18 98.3 76 18 122/62 100 Nasal 3.0 14:30 (82) Cannula 12/31/18 98.3 74 18 120/67 100 Nasal 3.0 13:30 (84) Cannula 12/31/18 98.3 76 18 125/66 100 Nasal 3.0 13:00 (85) Cannula 12/31/18 16 13:00 12/31/18 98.3 73 16 122/65 100 Nasal 3.0 12:30 (84) Cannula 12/31/18 98.3 74 16 119/63 100 Nasal 3.0 12:15 (81) Cannula 12/31/18 Nasal 2.0 12:00 Cannula 12/31/18 98.3 75 16 120/62 100 Nasal 3.0 12:00 (81) Cannula 12/31/18 98.3 74 16 118/60 100 Nasal 3.0 11:45 (79) Cannula 12/31/18 98.3 76 16 116/59 100 Nasal 3.0 11:30 (78) Cannula 12/31/18 70 15 112/54 100 Nasal 3.0 10:42 (73) Cannula 12/31/18 70 15 112/54 100 10:42 (73) 12/31/18 72 12 101/59 100 Nasal 3.0 10:37 (73) Cannula 12/31/18 72 12 101/59 100 10:37 (73) 12/31/18 74 12 104/55 100 Nasal 3.0 10:32 (71) Cannula 12/31/18 74 12 104/55 100 10:32 (71) 12/31/18 72 12 108/49 100 10:27 (68) 12/31/18 72 12 108/49 100 Nasal 3.0 10:27 (68) Cannula 12/31/18 72 13 96/58 (71) 100 Nasal 3.0 10:22 Cannula 12/31/18 72 13 96/58 (71) 100 10:22 12/31/18 74 14 102/55 100 Nasal 3.0 10:17 (71) Cannula 12/31/18 74 14 102/55 100 10:17 (71) 12/31/18 72 12 108/57 100 10:12 (74) 12/31/18 72 12 108/57 100 Nasal 3.0 10:12 (74) Cannula 12/31/18 74 14 108/60 100 10:07 (76) 12/31/18 74 14 108/60 100 Nasal 3.0 10:07 (76) Cannula 12/31/18 72 17 105/57 100 Mask 8.0 10:02 (73) 12/31/18 72 24 115/56 100 Mask 8.0 09:57 (75) 12/31/18 82 28 112/60 100 Mask 8.0 09:52 (77) 12/31/18 82 22 100 09:50 12/31/18 97.7 75 16 115/56 100 Mask 8.0 09:50 (75) 12/31/18 98.2 09:42 12/31/18 97.8 64 18 122/71 96 Room Air 06:32 (88) Vital Signs Date Temp Pulse Resp B/P (MAP) Pulse Ox O2 O2 Flow FiO2 Time Delivery Rate 01/02/19 98.7 81 14 135/65 100 Room Air 07:18 (88) 01/01/19 2.0 08:00 Intake and Output 01/01/19 01/01/19 01/02/19 1515:00 23:00 07:00 IntakeIntake Total 400 ml 680 ml OutputOutput Total 640 ml 10 ml BalanceBalance -240 ml 680 ml -10 ml Constitutional: alert, oriented, well developed Respiratory: clear to auscultation, normal air movement Cardiovascular: regular rate and rhythm, nl pulses; No edema, No murmurs/extra sounds, No rub Gastrointestinal: soft, nl liver, spleen, non-tender, bowel sounds; No mass, No rebound or guarding Musculoskeletal: nl extremities to inspection Extremities: normal pulses; No cyanosis, No clubbing, No edema Neurological: INLETTER II-XII intact, nl mental status, nl speech, nl strength Results Result Diagram: 01/01/19 0435 01/01/19 0440 Medications Medication Current Medications Lactated Ringer's 1,000 ml @ 20 mls/hr Q24H IV Last administered on 12/31/18at 06:14; Admin Dose 20 MLS/HR; Start 12/31/18 at 06:30 Dextrose/Sodium Chloride 1,000 ml @ 100 mls/hr Q10H IV Last administered on 01/01/19at 00:14; Admin Dose 100 MLS/HR; Start 12/31/18 at 09:36 Acetaminophen/ Hydrocodone Bitart ([place] (5/325)) 1 tab Q4H PRN PO .PAIN 1-5 Last administered on 01/02/19 09:45; Admin Dose 1 TAB; Start 12/31/18 at 10:00 Acetaminophen/ Hydrocodone Bitart ([place] (5/325)) 2 tab Q4H PRN PO .PAIN 6-10 Last administered on 01/02/19 01:05; Admin Dose 2 TAB; Start 12/31/18 at 10:00 Zolpidem Tartrate (Ambien) 5 mg HS PRN PO .INSOMNIA; Start 12/31/18 at 10:00 Prochlorperazine (Compazine) 10 mg Q4H PRN PO NAUSEA/VOMITING; Start 12/31/18 at 10:00 Trimethobenzamide HCl (Tigan) 200 mg Q4H PRN IM NAUSEA/VOMITING; Start 12/31/18 at 10:00 Ondansetron HCl (Zofran Inj) 4 mg Q6H PRN IV NAUSEA/VOMITING Last administered on 12/31/18 14:39; Admin Dose 4 MG; Start 12/31/18 at 10:00 Al Hydrox/Mg Hydrox/Simethicone (Mag-Al Plus) 15 ml Q4H PRN PO .CONSTIPATION; Start 12/31/18 at 10:00 Docusate Sodium (Colace) 100 mg BID PO Last administered on 01/02/19 09:44; Admin Dose 100 MG; Start 01/01/19 at 09:00 Acetaminophen (Tylenol Tab) 650 mg Q4H PRN PO TEMP GREATER THAN 101F OR [place]; Start 12/31/18 at 10:00 Ascorbic Acid (Vitamin C) 1,000 mg BID PO Last administered on 01/02/19 09:44; Admin Dose 1,000 MG; Start 01/01/19 at 09:00 Ferrous Sulfate (Ferrous Sulfate (Ec)) 325 mg TID PO Last administered on 01/02/19 09:44; Admin Dose 325 MG; Start 01/01/19 at 09:00 Ranitidine HCl (Zantac) 150 mg BID PO Last administered on 01/02/19 09:45; A dmin Dose 150 MG; Start 12/31/18 at 21:00 Diazepam (Valium) 5 mg Q4H PRN PO .MUSCLE SPASM Last administered on 01/02/19 07:20; Admin Dose 5 MG; Start 12/31/18 at 10:00 Diazepam (Valium) 5 mg Q4H PRN IM .MUSCLE SPASM; Start 12/31/18 at 10:00 Phenol (Cepastat Lozenge) 1 lozenge PRN PRN MT .SORE THROAT Last administered on 12/31/18at 18:47; Admin Dose 1 LOZENGE; Start 12/31/18 at 10:00 Diphenhydramine HCl (Benadryl) 50 mg Q6H PRN PO .PRURITUS; Start 12/31/18 at 10:00 IV Flush (NS 3 ml) 3 ml PER PROTOCOL IV ; Start 12/31/18 at 10:00 Hydromorphone HCl (Dilaudid [employer]OR) Q4PCA IV Last administered on 12/31/18 10:32; Admin Dose 6 MG; Start 12/31/18 at 10:00 Naloxone HCl (Narcan) 0.2 mg Q2M PRN IV RR 8 BREATHS/MIN OR LESS; Start 12/31/18 at 10:00 Amitriptyline HCl (Elavil) 15 mg QHS PO Last administered on 01/01/19 20:55; Admin Dose 15 MG; Start 12/31/18 at 21:00 Levothyroxine Sodium (Synthroid) 100 mcg BEFORE BREAKFAST PO Last administered on 01/02/19 06:32; Admin Dose 100 MCG; Start 01/01/19 at 07:00 Metoclopramide HCl (Reglan) 10 mg Q6H PRN IV NAUSEA Last administered on 01/01/19 08:50; Admin Dose 10 MG; Start 12/31/18 at 14:00 Bethanechol Chloride (Urecholine) 25 mg PRN PRN PO UNABLE TO VOID Last administered on 01/01/19 08:51; Admin Dose 25 MG; Start 01/01/19 at 08:00 NAVJOT FERNANDEZ MD Jan 02, 2019 09:57
--- NOTE | 2019-01-02 22:22 | DS ---
DATE OF ADMISSION: 12/31/2018 DATE OF DISCHARGE: 01/02/2019 ADMISSION AND DISCHARGE DIAGNOSIS: Lumbar spinal stenosis at L4 and L5. OPERATIONS AND PROCEDURES: On 12/31/2018, the patient underwent the following procedures: 1. Central decompressive laminectomy at L4. 2. Central decompressive laminectomy at L5. 3. Medial facetectomy and foraminotomy at L4 to L5 and L5 to S1 bilaterally. 4. Cosmetic wound closure (6 cm). 5. Intraoperative nerve monitoring (3 hours). PERTINENT HISTORY AND PHYSICAL: This is a 63-year-old female with severe back and bilateral leg pain which has been unrelieved by conservative management. She has undergone a number of diagnostic stud ies including an MRI of the lumbar spine which demonstrated severe central stenosis at L4 and lateral recess stenosis at L5. Treatment options were discussed with the patient, she elected to proceed wi surgery. HOSPITAL COURSE: The patient was admitted on 12/31/2018 and after routine laboratory admission studi es which were essentially within normal limits, the patient was scheduled for the operative procedure s described previously. She tolerated the procedure well and recovered uneventfully. She was given intensive inpatient physical therapy for walker ambulation training until she was independent without assistance. She was discharged on 01/02/2019 with marked improvement in preop symptomatology. She was given instructions for followup in my office in 1 to 2 weeks. She was given strict discharge pre cautions and instructions to remain sedentary except for walking a mile a day in divided increments. She is also take her temperature twice daily for any fever over 100 degrees Fahrenheit or any chills , sweats or drainage from her incision. She was given back instruction sheets for information. DISCHARGE MEDICATIONS: Include [place] 5/325 #50 one or 2 q.4 hours p.r.n. pain. Dictated By: ALIYA BEACH MD TM/NTS Conf#: [id number] DID#: [id number] CC: NAVJOT FERNANDEZ MD;*EndCC*
--- NOTE | 2019-01-04 07:41 | PAC ---
Date/Time of Note Date/Time of Note DATE: 01/04/19 TIME: 07:41 Post-Anesthesia Notes Post-Anesthesia Note Last documented vital signs Vital Signs Date Temp Pulse Resp B/P (MAP) Pulse Ox O2 O2 Flow FiO2 Time Delivery Rate 01/02/19 98.7 81 14 135/65 100 Room Air 07:18 (88) 01/01/19 2.0 08:00 Activity: WNL Respiratory function: WNL Cardiovascular function: WNL Mental status: Baseline Pain reasonably controlled: Yes Hydration appropriate: Yes Nausea/Vomiting absent: Yes SERA LOGAN Jan 04, 2019 07:41
== END 2019-01-02 11:01 | disposition home or self-care (01) | DRG 517 ==
LOC: REC 12-31 05:16 → MS1 12-31 11:06
PROVIDERS: ADMIT Orthopaedic Surgery; ATTEND Orthopaedic Surgery
PROC: 01NB0ZZ Release Lumbar Nerve, Open Approach (ICD-10-PCS; principal; 2018-12-31 07:00)
DX: M48.061 Spinal stenosis, lumbar region without neurogenic claudication (principal); E03.9 Hypothyroidism, unspecified; G47.00 Insomnia, unspecified; R11.2 Nausea with vomiting, unspecified; Z87.891 Personal history of nicotine dependence
CPT/HCPCS: 72020; 80048; 80053; 81001; 81003; 85014; 85018; 85025; 85610; 85651; 85730; 86850; 86900; 86901; 86920; 87086; 88304; 88311; 97110; 97116; 97162; 97530; J0690; J1170; J2001; J2175; J2405; J2765; J3010; J7042; J7120